=== PATIENT | female | born 1960 | race African-American/Black ===

== ENCOUNTER 2018-04-01 11:21 | Emergency (ER) | payer OTHER ==
[~2018-04-01] VITALS: Ht 157.5 cm; Wt 71.2 kg
[2018-04-01] MEDS ORDERED: ASPirin 81 mg TAB PO ONE (12:00)
[2018-04-01 12:51] LABS: Urine Bacteria NONE SEEN /hpf (None Seen); Urine Blood Negative /uL (Negative); Urine Specific Gravity 1.008 (1.001-1.035); Urine WBC <1 /hpf (0 - 5)
[2018-04-01 13:48] LABS: Basophils # (auto) 0 uL; Basophils % (auto) 0.6 % (0.0-2.0); Eosinophils # (auto) 0.1 uL; Eosinophils % (auto) 2.8 % (0.0-7.0); Hematocrit 40.4 % (36.0-46.0); Hemoglobin 13.1 g/dL (12.2-16.2); Lymphocytes # (auto) 1.8 uL; Lymphocytes % (auto) 45.3 % (10.0-50.0); Mean Corpuscular Hemoglobin 28.7 pg (28.0-32.0); Mean Corpuscular Hgb Conc. 32.5 g/dL (32.0-36.0); Mean Corpuscular Volume 88.4 fL (80.0-100.0); Monocytes # (auto) 0.2 uL; Neutrophils # (auto) 1.9 uL; Neutrophils % (auto) 46.3 % (37.0-80.0); Nucleated Red Blood Cells % 0.2 %; Platelet Count (auto) 206 10^3/uL (140-450); Red Blood Cells 4.57 10^6/uL (4.0-5.20); Red Cell Distribution Width 14.5 % (11.8-14.3)
[2018-04-01 14:08] LABS: Albumin 4.3 g/dL (3.4-5.0); Anion Gap 5 (5-15); Blood Urea Nitrogen 10 mg/dL (7-18); Calcium 8.9 mg/dL (8.5-10.1); Carbon Dioxide 26 mmol/L (21-32); Chloride 108 mmol/L (98-107); Glucose 78 mg/dL (74-106); Potassium 3.4 mmol/L (3.5-5.1); Sodium 139 mmol/L (136-145)
[2018-04-01 14:11] LABS: INR 0.99 (0.9-1.15); Partial Thromboplastin Time 25.9 sec (23.78-33.04); Prothrombin Time 10.6 sec (9.27-12.13)
[2018-04-01 14:14] LABS: Alanine Aminotransferase 28 U/L (13-56); Alkaline Phosphatase 72 U/L (45-117); Aspartate Aminotransferase 23 U/L (15-37); Bilirubin, Total 0.8 mg/dL (0.2-1.0); GFR African American 73 mL/min; GFR Non-African American 61 mL/min; Total Protein 8.1 g/dL (6.4-8.2)
[2018-04-01 17:54] VITALS: BP 138/65
== END 2018-04-01 18:28 | disposition home or self-care (01) ==
LOC: ER 11:30
CPT/HCPCS: 36415; 70450; 71046; 80053; 81001; 83880; 84443; 84484; 85025; 85610; 85730; 93005